=== PATIENT | male | born 2000 | race Caucasian/White ===

== ENCOUNTER 2022-01-12 10:00 | Emergency (ER) | payer OTHER ==
[~2022-01-12 10:00] MED LIST: ASPIR 8181 MG PO; PERCOCET 7.5-31 EACH PO; STOOL SOFTENER250 MG PO; ZOFRAN4 MG PO
[2022-01-12] MEDS ORDERED: IBUPROFEN600 MG PO (12:57)
== END 2022-01-12 13:20 | disposition home or self-care (01) ==
LOC: ER1 10:00
DX: M25.511 Pain in right shoulder (principal)
CPT/HCPCS: 73030; 99283